=== PATIENT | female | born 2000 | race African-American/Black ===

== ENCOUNTER 2020-06-24 19:51 | Emergency (ER) | payer BC ==
[2020-06-24 21:42] LABS: #Monocytes 0.3 10x3/uL (0.0-1.1); #Neutrophils 2.3 10x3/uL (1.5-8.4); %Lymphocytes 21.3 % (18.0-47.0); %Monocytes 8.2 % (0.0-10.0); %Neutrophils 70.2 % (40.0-75.0); Hemoglobin 10.4 g/dL (12.0-15.5); Mean Corpuscular HGB CONC 31.9 g/dL (32.0-36.0); Mean Corpuscular Hemoglobin 26.8 pg (27.0-33.0); Mean Platelet Volume 10.9 fl (7.4-10.4); Platelet Count 298 10x3/uL (150-450); RBC Distribution Width 14.3 % (11.5-14.5); Red Blood Cell (RBC) Count 3.88 10x6/uL (3.90-5.03); White Blood Cell (WBC) Count 3.3 10x3/uL (3.5-10.5)
[2020-06-24 21:57] LABS: Anion Gap 14 mmol/L (10-20); BUN (Urea Nitrogen) 6 mg/dL (7.0-18.7); Calc. Creatinine Clearance 0 mL/min (70-130); Carbon Dioxide 27 mmol/L (22-29); Chloride 98 mmol/L (98-107); Glucose 79 mg/dL (70-105); Potassium 3.2 mmol/L (3.5-5.1); Sodium 136 mmol/L (136-145)
[2020-06-24 22:20] LABS: ALT (SGPT) 55 U/L (8-55); AST (SGOT) 68 U/L (5-34); Albumin 4.2 g/dL (3.5-5.0); Alkaline Phosphatase 37 U/L (40-110); Bilirubin, Direct 0.3 mg/dL (0.1-0.3); Bilirubin, Total 0.5 mg/dL (0.2-1.2); Protein, Total 7.4 g/dL (6.0-8.3)
[2020-06-24 22:46] LABS: SARS-CoV-2 NAA Rapid Test DETECTED (NotDetected)
[2020-06-24] MEDS ORDERED: Benzonatate 100 MG CAP ONE (23:48)
== END 2020-06-24 23:57 | disposition home or self-care (01) ==
LOC: CSHERS 19:51
DX: U07.1 COVID-19 (principal)
CPT/HCPCS: 36415; 71045; 80048; 80076; 83605; 85025; 87040; 94799; U0002